=== PATIENT | female | born 1940 | race Caucasian/White ===

== ENCOUNTER → 2016-08-07 | Outpatient (CLI) | payer MEDICARE ==
[~2016-08-07] MED LIST: ADVIL200 MG PO; ALEVE220 MG PO; ASPIRIN81 M1 PO; B COMPLETE1 EACH PO; HYDROCHLOROTHIA25 M1 PO; PEPCID20 MG PO; VERAPAMIL240 MG PO
[2016-08-07 08:40] LABS: BASO % 0.4 % (0.0-1.0); EOS # 0.2 10*3/uL (0.0-0.4); EOS % 2.7 % (1.0-4.0); HEMATOCRIT 39.1 % (37.0-47.0); HEMOGLOBIN 12.9 g/dl (12.0-16.0); LYMPH # 2.1 10*3/uL (1.3-4.4); LYMPH % 37.8 % (27.0-41.0); MEAN CORPUSCULAR HGB 30.4 pg (27.0-31.0); MEAN PLATELET VOLUME 10.4 fl (9.6-12.3); MONO # 0.6 10*3/uL (0.1-1.0); NEUT # 2.8 10*3/uL (2.3-7.9); NEUT % 48.9 % (47.0-73.0); PLATELET COUNT AUTOMATED 197 10*3/uL (130-400); RED BLOOD COUNT 4.25 10*6/uL (4.10-5.10); RED CELL DISTRI WIDTH 12.6 % (0-14.5); WHITE BLOOD COUNT 5.6 10*3/uL (4.8-10.8)
[2016-08-07 09:23] LABS: ALBUMIN 3.2 gm/dl (3.1-4.5); ALKALINE PHOSPHATASE 97 U/L (45-117); BILIRUBIN, TOTAL 0.3 mg/dl (0.2-1.0); BUN 17 mg/dl (7-24); CARBON DIOXIDE 28 mmol/L (21-32); CHLORIDE 107 mmol/L (98-107); EST GLOM FILT AFRICAN AMERICAN > 60 ml/min; GLUCOSE 95 mg/dL (65-99); POTASSIUM 3.7 mmol/L (3.5-5.1); SGOT/AST 22 IU/L (3-35); SGPT/ALT 32 U/L (12-78); SODIUM 143 mmol/L (136-145); TOTAL PROTEIN 7.2 gm/dL (6.4-8.2)
[2016-08-07 09:33] LABS: FREE T4 1.38 ng/dl (0.76-1.46); THYROID STIM HORMONE (HS) 1.59 uIU/ml (0.358-4.75)
[2016-08-07 09:49] LABS: FOLIC ACID > 24.00 ng/mL (>5.38)
== END | disposition home or self-care (01) ==
LOC: LAB 08:11
PROVIDERS: Internal Medicine
DX: J44.9 Chronic obstructive pulmonary disease, unspecified (principal); I10 Essential (primary) hypertension; J00 Acute nasopharyngitis [common cold]; M62.830 Muscle spasm of back; R07.9 Chest pain, unspecified; K92.1 Melena; I38 Endocarditis, valve unspecified; K92.2 Gastrointestinal hemorrhage, unspecified; R00.2 Palpitations; R06.02 Shortness of breath; E55.9 Vitamin D deficiency, unspecified; R09.89 Other specified symptoms and signs involving the circulatory and respiratory systems

== ENCOUNTER → 2017-10-15 | Outpatient (CLI) | payer MEDICARE ==
[2017-10-15 08:14] LABS: BASO # 0.1 10*3/uL (0.0-0.1); BASO % 0.8 % (0.0-1.0); EOS # 0.2 10*3/uL (0.0-0.4); EOS % 2.7 % (1.0-4.0); HEMATOCRIT 36.4 % (37.0-47.0); HEMOGLOBIN 12.5 g/dl (12.0-16.0); LYMPH # 2.2 10*3/uL (1.3-4.4); LYMPH % 29.6 % (27.0-41.0); MEAN CELL VOLUME 91.9 fl (81.0-99.0); MEAN CORPUSCULAR HGB 31.6 pg (27.0-31.0); MEAN CORPUSCULAR HGB CONC 34.3 g/dl (33.0-37.0); MEAN PLATELET VOLUME 10.8 fl (9.6-12.3); MONO # 0.5 10*3/uL (0.1-1.0); MONO % 7.3 % (3.0-9.0); NEUT # 4.4 10*3/uL (2.3-7.9); NEUT % 59.3 % (47.0-73.0); PLATELET COUNT AUTOMATED 229 10*3/uL (130-400); RED BLOOD COUNT 3.96 10*6/uL (4.10-5.10); RED CELL DISTRI WIDTH 12.8 % (0-14.5); WHITE BLOOD COUNT 7.4 10*3/uL (4.8-10.8)
[2017-10-15 09:17] LABS: ALBUMIN 3.2 gm/dl (3.1-4.5); BUN 22 mg/dl (7-24); CHLORIDE 108 mmol/L (98-107); POTASSIUM 3.8 mmol/L (3.5-5.1); SODIUM 141 mmol/L (136-145)
[2017-10-15 09:22] LABS: ALKALINE PHOSPHATASE 108 U/L (45-117); CHOLESTEROL 162 mg/dL (<200); HDL CHOLESTEROL 57 mg/dl (40-60); LDL CHOLESTEROL 88 mg/dL (9-159); SGOT/AST 17 IU/L (3-35); SGPT/ALT 21 U/L (12-78); TRIGLYCERIDES 84 mg/dl (<150); VLDL CHOLESTEROL 17 mg/dL (6-40)
[2017-10-16 08:12] LABS: RHEUMATOID ARTHRITIS FACTOR <10.0 IU/mL (0.0-13.9)
[2017-10-16 15:06] LABS: ANTI-DSDNA ANTIBODIES 096339 <1 IU/mL (0-9)
[2017-10-17 00:02] LABS: CCP ANTIBODIES IGG/IGA 5 units (0-19)
== END | disposition home or self-care (01) ==
LOC: LAB 07:50
PROVIDERS: Internal Medicine
DX: M19.042 Primary osteoarthritis, left hand (principal); M19.041 Primary osteoarthritis, right hand; E78.2 Mixed hyperlipidemia

== ENCOUNTER → 2018-07-22 | Outpatient (CLI) | payer MEDICARE | END | disposition home or self-care (01) | LOC: MAMMO 07:32 | DX: Z12.31 Encounter for screening mammogram for malignant neoplasm of breast (principal); R92.1 Mammographic calcification found on diagnostic imaging of breast ==

== ENCOUNTER → 2018-11-04 | Outpatient (CLI) | payer MEDICARE | END | disposition home or self-care (01) | LOC: CT 09:50 | DX: M17.11 Unilateral primary osteoarthritis, right knee (principal) ==

== ENCOUNTER → 2019-06-13 | Outpatient (CLI) | payer MEDICARE ==
[2019-06-13 09:01] LABS: BASO # 0.1 10*3/uL (0.0-0.1); BASO % 0.7 % (0.0-1.0); EOS # 0.2 10*3/uL (0.0-0.4); EOS % 2.5 % (1.0-4.0); HEMATOCRIT 38.2 % (37.0-47.0); HEMOGLOBIN 12.3 g/dl (12.0-16.0); LYMPH # 2.4 10*3/uL (1.3-4.4); LYMPH % 25.4 % (27.0-41.0); MEAN CELL VOLUME 96.7 fl (81.0-99.0); MEAN CORPUSCULAR HGB 31.1 pg (27.0-31.0); MEAN CORPUSCULAR HGB CONC 32.2 g/dl (33.0-37.0); MEAN PLATELET VOLUME 11.2 fl (9.6-12.3); MONO # 0.7 10*3/uL (0.1-1.0); MONO % 7.7 % (3.0-9.0); NEUT % 63.4 % (47.0-73.0); PLATELET COUNT AUTOMATED 219 10*3/uL (130-400); RED BLOOD COUNT 3.95 10*6/uL (4.10-5.10); RED CELL DISTRI WIDTH 13.1 % (0-14.5); WHITE BLOOD COUNT 9.4 10*3/uL (4.8-10.8)
[2019-06-13 09:29] LABS: BUN 26 mg/dl (7-24); CHLORIDE 108 mmol/L (98-107); POTASSIUM 4.1 mmol/L (3.5-5.1); SODIUM 142 mmol/L (136-145)
[2019-06-13 09:37] LABS: ALBUMIN 3.1 gm/dl (3.1-4.5); ALKALINE PHOSPHATASE 88 U/L (45-117); CHOLESTEROL 184 mg/dL (<200); CREATININE 0.77 mg/dL (0.55-1.02); HDL CHOLESTEROL 61 mg/dl (40-60); LDL CHOLESTEROL 107 mg/dL (9-159); SGOT/AST 16 IU/L (3-35); SGPT/ALT 26 U/L (12-78); TRIGLYCERIDES 79 mg/dl (<150); VLDL CHOLESTEROL 16 mg/dL (6-40)
[2019-06-13 09:49] LABS: VITAMIN D, 25-HYDROXY 21.9 ng/mL (30-100)
== END | disposition home or self-care (01) ==
LOC: LAB 08:20 → RAD 09:00
PROVIDERS: Internal Medicine
DX: M85.88 Other specified disorders of bone density and structure, other site (principal); I10 Essential (primary) hypertension; E55.9 Vitamin D deficiency, unspecified; D52.9 Folate deficiency anemia, unspecified; D51.9 Vitamin B12 deficiency anemia, unspecified; Z78.0 Asymptomatic menopausal state

== ENCOUNTER → 2020-01-06 | Outpatient (CLI) | payer MEDICARE | END | disposition home or self-care (01) | LOC: LAB 10:40 | PROVIDERS: Internal Medicine | DX: S50.362A Insect bite (nonvenomous) of left elbow, initial encounter (principal); W57.XXXA Bitten or stung by nonvenomous insect and other nonvenomous arthropods, initial encounter; Y93.89 Activity, other specified; Y92.89 Other specified places as the place of occurrence of the external cause; Y99.8 Other external cause status ==

== ENCOUNTER → 2021-01-21 | Outpatient (CLI) | payer MEDICARE | END | disposition home or self-care (01) | LOC: US 16:47 | PROVIDERS: ATTEND Internal Medicine | DX: I65.23 Occlusion and stenosis of bilateral carotid arteries (principal) ==

== ENCOUNTER → 2021-02-06 | Outpatient (CLI) | payer MEDICARE ==
[2021-02-06 10:09] LABS: BASO # 0.1 10*3/uL (0.0-0.1); BASO % 0.8 % (0.0-1.0); EOS # 0.2 10*3/uL (0.0-0.4); EOS % 2.9 % (1.0-4.0); HEMATOCRIT 38.2 % (37.0-47.0); LYMPH # 2.1 10*3/uL (1.3-4.4); LYMPH % 27.5 % (27.0-41.0); MEAN CELL VOLUME 92.9 fl (81.0-99.0); MEAN CORPUSCULAR HGB 30.7 pg (27.0-31.0); MEAN PLATELET VOLUME 11.7 fl (9.6-12.3); MONO # 0.6 10*3/uL (0.1-1.0); MONO % 7.7 % (3.0-9.0); NEUT # 4.6 10*3/uL (2.3-7.9); NEUT % 60.3 % (47.0-73.0); PLATELET COUNT AUTOMATED 215 10*3/uL (130-400); RED BLOOD COUNT 4.11 10*6/uL (4.10-5.10); WHITE BLOOD COUNT 7.6 10*3/uL (4.8-10.8)
[2021-02-06 10:31] LABS: ALBUMIN 3.3 gm/dl (3.1-4.5); BUN 17 mg/dl (7-24); CHLORIDE 107 mmol/L (98-107); FREE T4 0.98 ng/dl (0.76-1.46); SGOT/AST 16 IU/L (3-35); SODIUM 140 mmol/L (136-145); TOTAL PROTEIN 7.1 gm/dL (6.4-8.2)
[2021-02-06 10:41] LABS: ALKALINE PHOSPHATASE 86 U/L (45-117); CHOLESTEROL 167 mg/dL (<200); CREATININE 0.69 mg/dL (0.55-1.02); LDL CHOLESTEROL 97 mg/dL (9-159); SGPT/ALT 21 U/L (12-78); TRIGLYCERIDES 80 mg/dl (<150)
[2021-02-06 12:39] LABS: VITAMIN D, 25-HYDROXY 24.5 ng/mL (30-100)
== END | disposition home or self-care (01) ==
LOC: LAB 08:28 → RAD 09:00 → CARD 09:30
PROVIDERS: ATTEND Internal Medicine
DX: M85.852 Other specified disorders of bone density and structure, left thigh (principal); I08.0 Rheumatic disorders of both mitral and aortic valves; I10 Essential (primary) hypertension; M17.0 Bilateral primary osteoarthritis of knee; R00.1 Bradycardia, unspecified; L25.5 Unspecified contact dermatitis due to plants, except food; K59.00 Constipation, unspecified; R60.0 Localized edema; Z00.01 Encounter for general adult medical examination with abnormal findings; Z78.0 Asymptomatic menopausal state

== ENCOUNTER → 2022-08-18 | Outpatient (CLI) | payer MEDICARE | END | disposition home or self-care (01) | LOC: CT 13:40 | PROVIDERS: ATTEND Internal Medicine | DX: K76.9 Liver disease, unspecified (principal); N28.1 Cyst of kidney, acquired ==

== ENCOUNTER → 2022-08-22 | Outpatient (CLI) | payer MEDICARE | END | disposition home or self-care (01) | LOC: US 02:11 | PROVIDERS: ATTEND Internal Medicine | DX: K76.0 Fatty (change of) liver, not elsewhere classified (principal); K80.20 Calculus of gallbladder without cholecystitis without obstruction; K76.89 Other specified diseases of liver; R93.89 Abnormal findings on diagnostic imaging of other specified body structures; R10.84 Generalized abdominal pain; R10.2 Pelvic and perineal pain ==

== ENCOUNTER → 2022-10-10 | Day surgery (SDC) | payer MEDICARE ==
[2022-10-06 13:22] VITALS: BP 141/66
[2022-10-09 10:36] VITALS: BP 145/61
[2022-10-09 14:20] VITALS: BP 162/79
[2022-10-09 14:35] VITALS: BP 146/63
[2022-10-09 14:50] VITALS: BP 156/57
[~2022-10-10] VITALS: Ht 165.1 cm; Wt 104.3 kg
[~2022-10-10] MED LIST changes: +COLACE100 MG PO; +HYDROCODONE-AC1 EAC1 PO; +ONDANSETRON HYDR4 M1 PO
== END | disposition home or self-care (01) ==
LOC: SDC 10-06 13:15
PROVIDERS: ATTEND Surgery
DX: K80.10 Calculus of gallbladder with chronic cholecystitis without obstruction (principal); I10 Essential (primary) hypertension; Z79.899 Other long term (current) drug therapy

== ENCOUNTER → 2023-09-03 | Outpatient (CLI) | payer MEDICARE ==
[2023-09-03 10:04] LABS: BASO # 0.1 10*3/uL (0.0-0.1); BASO % 0.8 % (0.0-1.0); EOS # 0.3 10*3/uL (0.0-0.4); EOS % 3.4 % (1.0-4.0); HEMATOCRIT 40.1 % (37.0-47.0); LYMPH # 2.1 10*3/uL (1.3-4.4); LYMPH % 27.6 % (27.0-41.0); MEAN CORPUSCULAR HGB CONC 32.7 g/dl (33.0-37.0); MEAN PLATELET VOLUME 10.4 fl (9.6-12.3); MONO # 0.6 10*3/uL (0.1-1.0); MONO % 7.3 % (3.0-9.0); NEUT # 4.6 10*3/uL (2.3-7.9); NEUT % 60.5 % (47.0-73.0); PLATELET COUNT AUTOMATED 197 10*3/uL (130-400); RED BLOOD COUNT 4.22 10*6/uL (4.10-5.10); WHITE BLOOD COUNT 7.6 10*3/uL (4.8-10.8)
[2023-09-03 10:38] LABS: ALKALINE PHOSPHATASE 95 U/L (46-116); BUN 20 mg/dl (9-23); CHLORIDE 105 mmol/L (98-107); CHOLESTEROL 175 mg/dL (<200); FREE T4 1.18 ng/dl (0.89-1.76); LDL CHOLESTEROL 100 mg/dL (9-159); POTASSIUM 4.1 mmol/L (3.4-5.1); SGPT/ALT 12 U/L (5-49); TOTAL PROTEIN 7.3 gm/dL (6.0-8.0); TRIGLYCERIDES 99 mg/dl (<150)
[2023-09-03 11:07] LABS: VITAMIN D, 25-HYDROXY 30.4 ng/mL (30-100)
== END | disposition home or self-care (01) ==
LOC: LAB 09:36
PROVIDERS: ATTEND Internal Medicine
DX: I10 Essential (primary) hypertension (principal); M15.0 Primary generalized (osteo)arthritis; R10.84 Generalized abdominal pain; R00.1 Bradycardia, unspecified; R60.0 Localized edema; R53.81 Other malaise; R93.5 Abnormal findings on diagnostic imaging of other abdominal regions, including retroperitoneum; E55.9 Vitamin D deficiency, unspecified

== ENCOUNTER → 2023-09-07 | Outpatient (CLI) | payer MEDICARE | END | disposition home or self-care (01) | LOC: CT 01:08 | PROVIDERS: ATTEND Internal Medicine | DX: J43.9 Emphysema, unspecified (principal); R10.13 Epigastric pain; I70.0 Atherosclerosis of aorta; M51.37 Other intervertebral disc degeneration, lumbosacral region; Z90.49 Acquired absence of other specified parts of digestive tract ==

== ENCOUNTER → 2023-09-11 | Outpatient (CLI) | payer MEDICARE | END | disposition home or self-care (01) | LOC: MRI 01:12 | PROVIDERS: ATTEND Internal Medicine | DX: K76.0 Fatty (change of) liver, not elsewhere classified (principal); R93.5 Abnormal findings on diagnostic imaging of other abdominal regions, including retroperitoneum; K76.89 Other specified diseases of liver; N28.1 Cyst of kidney, acquired; Z90.49 Acquired absence of other specified parts of digestive tract ==